=== PATIENT | male | born 1950 | race Caucasian/White ===

== ENCOUNTER 2017-04-03 09:56 | Emergency (ER) | payer MEDICARE ==
[~2017-04-03] VITALS: Ht 193 cm; Wt 90.5 kg
[~2017-04-03 09:56] MED LIST: BACT2OIN TOP; SULF-154 PO; Z.0.NO CURRENT MEDS
[2017-04-03 10:55] VITALS: BP 144/79; PULSE 90; RESP 20; TEMP 98.9; O2SAT 96
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
[2017-04-03] MEDS ORDERED: KETOROLAC TROMETHAMINE 60 MG/2 ML (IM) VIAL IM ONE (11:15)
--- NOTE | 2017-04-03 12:15 | RADRPT ---
EXAM DATE/TIME: 04/03/2017 11:54 [facility] COMPARISON: No previous studies available for comparison. INDICATIONS : Left knee pain, post fall. MEDICAL HISTORY : Prior fracture to left leg SURGICAL HISTORY : ENCOUNTER: Initial ACUITY: 1 day PAIN SCORE: 7/10 LOCATION: Left knee FINDINGS: Severe deformity is identified of the left knee. Findings predominantly involve the proximal tibia. T here is coarse trabeculation, cortical deformity and radiolucent cystic regions. There is no evidence of acute fracture. No significant joint effusion is noted. Significant narrowing is identified of the medial and lateral joint compartments. CONCLUSION: Benign-appearing deformity of the left knee predominantly involving the proximal tibia which may be p osttraumatic. No evidence of acute fracture or joint effusion. Moderate degenerative joint disease with joint space narrowing and remodeling of the articular surfac es. Pardeep Michaels MD on April 03, 2017 at 12:10 Board Certified Radiologist. This report was verified electronically.
[2017-04-03] MEDS ORDERED: IBUP800T23 PO (12:18)
[2017-04-03] MEDS ORDERED: UNIS50CA PO (13:19)
[2017-04-03] MEDS ORDERED: VITA-136 PO (13:19)
[2017-04-03] MEDS ORDERED: TRAZ100T6 PO (13:19)
[2017-04-03] MEDS ORDERED: BENZ0.5T PO (13:19)
[2017-04-03] MEDS ORDERED: ALBUAER3 INH (13:19)
[2017-04-03] MEDS ORDERED: ASPI81TA2 PO (13:19)
[2017-04-03] MEDS ORDERED: SYMB160A INH (13:19)
[2017-04-03] MEDS ORDERED: HALO10TA PO (13:19)
[2017-04-03] MEDS ORDERED: ZOCO20TA PO (13:19)
--- NOTE | 2017-04-03 15:28 | RADRPT ---
EXAM DATE/TIME: 04/03/2017 14:43 [facility] COMPARISON: KNEE LEFT COMPLETE (4VWS), April 03, 2017, 11:54. INDICATIONS : Trip and fall, left knee pain. RADIATION DOSE: 5.25 CTDIvol (mGy) MEDICAL HISTORY : None SURGICAL HISTORY : None. ENCOUNTER: Initial ACUITY: 1 day PAIN SCALE: 7/10 LOCATION: Left knee. TECHNIQUE: Volumetric scanning of the knee was performed. Using automated exposure control and adjustment of th e mA and/or kV according to patient size, radiation dose was kept as low as reasonably achievable to obtain optimal diagnostic quality images. DICOM format image data is available electronically for re view and comparison. FINDINGS: Small joint effusion is seen. There are mixed areas of lucency in the patient's distal femur and proximal tibia and fibula and there is evidence for old healed proximal tibial fracture with deformi ty of the bony structures. Acute fracture is not identified. CONCLUSION: No definite fracture is seen for techniqueOnel Trotter MD on April 03, 2017 at 15:25 Board Certified Radiologist. This report was verified electronically.
[2017-04-03 16:02] VITALS: BP 144/72
== END 2017-04-03 16:05 | disposition home or self-care (01) ==
LOC: NEPD 09:56
DX: M25.562 Pain in left knee (principal)
CPT/HCPCS: 73564; 73700; 96372; 99285; E0113; J1885

== ENCOUNTER 2018-06-27 20:59 | Inpatient (IN) ==
--- NOTE | 2018-06-27 21:29 | XR ---
EXAM DATE: 06/27/2018 9:14 PM EDT AGE/SEX: 67 years / Male INDICATIONS: Cough CLINICAL DATA: This is the patient's initial encounter. Patient reports that signs and symptoms have been present for 1 day and indicates a pain score of 0/10. MEDICAL/SURGICAL HISTORY: None. None. COMPARISON: No prior exams available for comparison. FINDINGS: A single AP view of the chest demonstrates the lungs to be symmetrically aerated without evidence of mass, infiltrate or effusion. The cardiomediastinal contours are unremarkable. Osseous structures a re intact. CONCLUSION: No acute findings. Mildly tortuous aorta. Electronically signed by: Noel Castellanos MD 06/27/2018 9:28 PM EDT
--- NOTE | 2018-06-27 21:31 | ED ---
HPI General Chief complaint: Altered Mental Status Stated complaint: Poss AMS Time Seen by Provider: 06/27/18 21:01 Source: patient Mode of arrival: EMS Limitations: no limitations History of Present Illness HPI narrative: The patient is a 67 year old male who presents to the [facility] emergency department with a history of altered mentation began an unknown period of time prior to arrival. The patient is a resident at [facility]. The patient has a reported history of paranoid schizophrenia. The patient is usually quiet and keeps to himself at the facility, however the staff noticed today that he was fidgety, giggling to himself, and down in the office more than usual. The patient denies having any acute complaints. The patient denies using any alcohol or drugs today. He reports that he does smoke 1-1/2 packs of cigarettes per day. He reports that he has been taking his psychiatric medications. He denies having any known recent fevers. The long-term staff did report to ambulance services that he had not been sleeping well for the last 3 days. The patient denies having any numbness or tingling to his extremities, or weakness to his extremities. He denies having any difficulty with word finding ability or facial droop. On review of systems otherwise, the patient denies having any cough, congestion, neck pain, chest pain, shortness of breath, abdominal pain, vomiting, diarrhea, urinary symptoms , or other neurologic symptoms. Related Data Home Medications Medication Instructions Recorded Confirmed albuterol sulfate [ProAir HFA] 1 - 2 puff INHALATION Q6H PRN 06/27/18 06/27/18 aspirin 81 mg PO DAILY 06/27/18 06/27/18 benztropine 2 mg PO HS 06/27/18 06/27/18 budesonide-formoterol [Symbicort] 2 puff INHALATION BID 06/27/18 06/27/18 diphenhydramine HCl 50 mg PO HS PRN 06/27/18 06/27/18 haloperidol 10 mg PO HS 06/27/18 06/27/18 omeprazole 20 mg PO DAILY 06/27/18 06/27/18 oxybutynin chloride 10 mg PO BID 06/27/18 06/27/18 simvastatin 20 mg PO DAILY 06/27/18 06/27/18 trazodone 200 mg PO HS 06/27/18 06/27/18 vitamin E 400 unit PO DAILY 06/27/18 06/27/18 Allergies Allergy/AdvReac Type Severity Reaction Status Date / Time morphine Allergy Severe Unverified 05/05/17 01:18 penicillin G Allergy Mild NAUSEA Unverified 05/05/17 01:18 MORPHINE & DERIV. Allergy Unknown Uncoded 05/29/03 12:16 NONE Allergy Unknown Uncoded 05/29/03 12:16 Review of Systems ROS: all other systems reviewed are negative PMFSH History History Provided By: Patient Family History Family History Other Stomach cancer Social History Social History Substance History: No History of Abuse Second Hand Smoke Exposure: Yes Smoking Status: Heavy tobacco smoker Tobacco Type: Cigarettes Packs Per Day: 1.5 Cigarettes Per Day: 30.0 How Often Do You Have a Drink Containing Alcohol: Never Recent Travel in [facility] within the Last 8 Weeks: No Recent Out of Country Travel within the Last 8 Weeks: No Immunization History Tetanus Immunization: >5 Years Exam Const General: cooperative, no acute distress and well developed Nutritional Appearance: well nourished Orientation: alert, awake and oriented x3 HENMT Head: normocephalic and atraumatic Nose: no nasal discharge and no epistaxis Mouth: moist mucous membranes Throat: posterior oropharynx normal and uvula midline Eyes Sclera: normal sclerae Pupils: PERRL EOM: EOM intact bilaterally Neck Neck: no meningeal signs, trachea midline and no JVD Resp Effort & Inspection: no use of accessory muscles Auscultation: clear to auscultation bilaterally Cardio Rate: regular rate Rhythm: regular rhythm Heart Sounds: no gallops, no murmurs and no rubs GI Inspection: non-distended Palpation: soft, no hepatosplenomegaly and nontender Auscultation: normal bowel sounds Back/Spine/Pelvis Back: no CVA tenderness Skin General: dry skin (warm) Neuro General: alert, awake and oriented x3 Cranial Nerves: CN's II-XI intact bilaterally Speech: abnormal speech (Slightly slurred, however the patient does not have any teeth which could be contributing to the slurring.) Motor: strength 5/5 throughout and no movement abnormalities noted Sensory Exam: no sensory deficits noted Extrem General: normal to inspection (2+ pulses in all 4 extremities), no calf tenderness, no clubbing, no cyanosis and no edema Psych Mood: congruent mood Affect: normal affect Judgment: fair Course Initial Documented Vital Signs Temperature 98.7 F 06/27/18 21:10 Pulse Rate 87 06/27/18 21:10 Respiratory Rate 16 06/27/18 21:10 Blood Pressure 158/83 H 06/27/18 21:10 Pulse Oximetry 97 06/27/18 21:10 Last Documented Vital Signs Temperature 98.7 F 06/27/18 21:10 Pulse Rate 54 L 06/28/18 06:05 Respiratory Rate 15 06/28/18 06:05 Blood Pressure 116/63 06/28/18 06:05 Pulse Oximetry 97 06/28/18 06:05 Medical Decision Making MDM Narrative Medical decision making narrative: During the course of the patient's emergency department visit, the patient's history, examination, and differential diagnosis were reviewed with the patient. The patient was placed on a equipment monitor phototypesetting with oximetry and frequent blood pressure monitoring. The patient had IV access obtained and blood work sent for analysis. Diagnostic evaluation was started regarding the patient's altered mentation The patient's diagnostic evaluation is remarkable for a normal CBC, PT PTT within normal limits, chemistries remarkable for a chloride of 108, glucose 123 , total bilirubin 1.1, AST is 74, alk phos 44, ammonia level within normal limits, troponin I less than 0.02, lipase within normal limits, TSH within normal limits. Urinalysis shows no evidence of infection, urine drug screen is negative, acetaminophen is less than 2, salicylate 4.7, alcohol level is less than 3. A chest x-ray showed no acute abnormality, CT scan of the brain showed a 5 mm lacunar infarct near the left anterior limb internal capsule which is a new finding from 2010. The patient was given an adult aspirin. The patient will be admitted to the hospital for altered mentation, evaluation for history of stroke which the patient denies any history of previously. The patient's case including history, pertinent physical examination findings, and laboratory studies were discussed with Dr. Garcia. It was agreed that the patient would be admitted to the hospitalist service. The patient's results were discussed with the patient, including the plan of care. I explained that further testing and/ or monitoring is indicated based on the patient's history, examination, and/ or laboratory findings. Therefore, I recommended admission for additional evaluation. The patient expressed understanding and was agreeable with this plan. The patient was admitted to the hospital in stable condition and sent to a bed under the care of [facility] service. Medical Screen Exam Complete: Yes Emergency Medical Condition: Yes Differential Diagnosis Differential Diagnosis: Hepatic encephalopathy, versus exacerbation of psychiatric disorder, versus encephalopathy related to underlying infection such as UTI Medical Records Medical records reviewed: Yes I reviewed the patient's medical records. Lab Data Result diagrams: 06/27/18 21:35 06/27/18 21:35 Lab Results 06/27/18 06/27/18 06/27/18 Range/Units 21:35 21:35 21:35 WBC 7.5 (4.0-11.0) th/mm3 RBC 4.51 (4.50-5.90) mil/mm3 Hgb 14.1 (13.0-17.0) gm/dL Hct 41.4 (39.0-51.0) % MCV 91.7 (80.0-100.0) fL MCH 31.3 (27.0-34.0) pg MCHC 34.1 (32.0-36.0) % RDW 14.5 (11.6-17.2) % Plt Count 161 (150-450) th/mm3 MPV 8.1 (7.0-11.0) fL Neut % (Auto) 70.0 (16.0-70.0) % Lymph % (Auto) 14.6 (9.0-44.0) % [place] % (Auto) 12.1 H (0.0-8.0) % Eos % (Auto) 2.6 (0.0-4.0) % Baso % (Auto) 0.7 (0.0-2.0) % Neut # (Auto) 5.3 (1.8-7.7) th/mm3 Lymph # (Auto) 1.1 (1.0-4.8) th/mm3 [place] # (Auto) 0.9 (0.0-0.9) th/mm3 Eos # (Auto) 0.2 (0.0-0.4) th/mm3 Baso # (Auto) 0.1 (0.0-0.2) th/mm3 WBC Differential . Differential Comment Auto diff final PT 11.4 (9.8-11.6) sec INR 1.1 Ratio APTT 27.1 (24.3-30.1) sec Sodium 141 (136-145) meq/L Potassium 3.7 (3.5-5.1) meq/L Chloride 108 H (98-107) meq/L Carbon Dioxide 22.8 (21.0-32.0) meq/L Anion Gap 10 (5-15) meq/L BUN 12 (7-18) mg/dL Creatinine 0.87 (0.60-1.30) mg/dL Estimated GFR 88 L (>89) mL/min Random Glucose 123 H (74-106) mg/dL Calcium 8.8 (8.5-10.1) mg/dL Total Bilirubin 1.1 H (0.2-1.0) mg/dL AST 74 H (15-37) U/L ALT 33 (12-78) U/L Alkaline Phosphatase 44 L (45-117) U/L Ammonia (11-32) mcmol/L Troponin I Less than 0.02 L (0.02-0.05) ng/mL Total Protein 7.7 (6.4-8.2) g/dL Albumin 3.9 (3.4-5.0) g/dL Lipase 60 L (73-393) U/L TSH 0.974 (0.358-3.740) uIU/mL Urine Color (Yellw/Straw) Urine Clarity (Clear) Urine pH (5.0-8.5) Ur Specific [place] (1.002-1.035) Urine Protein (Neg-Trace) mg/dL Urine Glucose (UA) (Negative) mg/dL Urine Ketones (Negative) mg/dL Urine Occult Blood (Negative) Urine Nitrate (Negative) Urine Bilirubin (Negative) Urine Urobilinogen (Less than 2) mg/dL Ur Leukocyte Esterase (Negative) Urine RBC (0-3) /hpf Urine WBC (0-5) /hpf Hyaline Casts (0-3) /lpf Urine Mucus (Occasional) /lpf Micro UA Comment Ur Microscopic Review Urine Culture Comments Salicylates (2.8-20.0) mg/dL Urine Opiates Screen (Neg) Acetaminophen Less than 2.0 L (10.0-30.0) mcg/mL Ur Barbiturates Screen (Neg) Ur Amphetamines Screen (Neg) U Benzodiazepines Scrn (Neg) Urine Cocaine Screen (Neg) U Cannabinoids Screen (Neg) Serum Alcohol Less than 3 (0-5) mg/dL 06/27/18 06/27/18 06/27/18 Range/Units 21:35 21:35 23:40 WBC (4.0-11.0) th/mm3 RBC (4.50-5.90) mil/mm3 Hgb (13.0-17.0) gm/dL Hct (39.0-51.0) % MCV (80.0-100.0) fL MCH (27.0-34.0) pg MCHC (32.0-36.0) % RDW (11.6-17.2) % Plt Count (150-450) th/mm3 MPV (7.0-11.0) fL Neut % (Auto) (16.0-70.0) % Lymph % (Auto) (9.0-44.0) % [place] % (Auto) (0.0-8.0) % Eos % (Auto) (0.0-4.0) % Baso % (Auto) (0.0-2.0) % Neut # (Auto) (1.8-7.7) th/mm3 Lymph # (Auto) (1.0-4.8) th/mm3 [place] # (Auto) (0.0-0.9) th/mm3 Eos # (Auto) (0.0-0.4) th/mm3 Baso # (Auto) (0.0-0.2) th/mm3 WBC Differential Differential Comment PT (9.8-11.6) sec INR Ratio APTT (24.3-30.1) sec Sodium (136-145) meq/L Potassium (3.5-5.1) meq/L Chloride (98-107) meq/L Carbon Dioxide (21.0-32.0) meq/L Anion Gap (5-15) meq/L BUN (7-18) mg/dL Creatinine (0.60-1.30) mg/dL Estimated GFR (>89) mL/min Random Glucose (74-106) mg/dL Calcium (8.5-10.1) mg/dL Total Bilirubin (0.2-1.0) mg/dL AST (15-37) U/L ALT (12-78) U/L Alkaline Phosphatase (45-117) U/L Ammonia 28 (11-32) mcmol/L Troponin I (0.02-0.05) ng/mL Total Protein (6.4-8.2) g/dL Albumin (3.4-5.0) g/dL Lipase (73-393) U/L TSH (0.358-3.740) uIU/mL Urine Color (Yellw/Straw) Urine Clarity (Clear) Urine pH (5.0-8.5) Ur Specific [place] (1.002-1.035) Urine Protein (Neg-Trace) mg/dL Urine Glucose (UA) (Negative) mg/dL Urine Ketones (Negative) mg/dL Urine Occult Blood (Negative) Urine Nitrate (Negative) Urine Bilirubin (Negative) Urine Urobilinogen (Less than 2) mg/dL Ur Leukocyte Esterase (Negative) Urine RBC (0-3) /hpf Urine WBC (0-5) /hpf Hyaline Casts (0-3) /lpf Urine Mucus (Occasional) /lpf Micro UA Comment Ur Microscopic Review Urine Culture Comments Salicylates 4.7 (2.8-20.0) mg/dL Urine Opiates Screen Neg (Neg) Acetaminophen (10.0-30.0) mcg/mL Ur Barbiturates Screen Neg (Neg) Ur Amphetamines Screen Neg (Neg) U Benzodiazepines Scrn Neg (Neg) Urine Cocaine Screen Neg (Neg) U Cannabinoids Screen Neg (Neg) Serum Alcohol (0-5) mg/dL 06/27/18 Range/Units 23:40 WBC (4.0-11.0) th/mm3 RBC (4.50-5.90) mil/mm3 Hgb (13.0-17.0) gm/dL Hct (39.0-51.0) % MCV (80.0-100.0) fL MCH (27.0-34.0) pg MCHC (32.0-36.0) % RDW (11.6-17.2) % Plt Count (150-450) th/mm3 MPV (7.0-11.0) fL Neut % (Auto) (16.0-70.0) % Lymph % (Auto) (9.0-44.0) % [place] % (Auto) (0.0-8.0) % Eos % (Auto) (0.0-4.0) % Baso % (Auto) (0.0-2.0) % Neut # (Auto) (1.8-7.7) th/mm3 Lymph # (Auto) (1.0-4.8) th/mm3 [place] # (Auto) (0.0-0.9) th/mm3 Eos # (Auto) (0.0-0.4) th/mm3 Baso # (Auto) (0.0-0.2) th/mm3 WBC Differential Differential Comment PT (9.8-11.6) sec INR Ratio APTT (24.3-30.1) sec Sodium (136-145) meq/L Potassium (3.5-5.1) meq/L Chloride (98-107) meq/L Carbon Dioxide (21.0-32.0) meq/L Anion Gap (5-15) meq/L BUN (7-18) mg/dL Creatinine (0.60-1.30) mg/dL Estimated GFR (>89) mL/min Random Glucose (74-106) mg/dL Calcium (8.5-10.1) mg/dL Total Bilirubin (0.2-1.0) mg/dL AST (15-37) U/L ALT (12-78) U/L Alkaline Phosphatase (45-117) U/L Ammonia (11-32) mcmol/L Troponin I (0.02-0.05) ng/mL Total Protein (6.4-8.2) g/dL Albumin (3.4-5.0) g/dL Lipase (73-393) U/L TSH (0.358-3.740) uIU/mL Urine Color Yellow (Yellw/Straw) Urine Clarity Clear (Clear) Urine pH 6.0 (5.0-8.5) Ur Specific [place] 1.014 (1.002-1.035) Urine Protein Negative (Neg-Trace) mg/dL Urine Glucose (UA) Negative (Negative) mg/dL Urine Ketones Trace H (Negative) mg/dL Urine Occult Blood Negative (Negative) Urine Nitrate Negative (Negative) Urine Bilirubin Negative (Negative) Urine Urobilinogen 4 or greater (Less than 2) mg/dL Ur Leukocyte Esterase Negative (Negative) Urine RBC 1 (0-3) /hpf Urine WBC 1 (0-5) /hpf Hyaline Casts 1 (0-3) /lpf Urine Mucus Few H (Occasional) /lpf Micro UA Comment Culture not ind Ur Microscopic Review Not Reportable Urine Culture Comments Culture not ind Salicylates (2.8-20.0) mg/dL Urine Opiates Screen (Neg) Acetaminophen (10.0-30.0) mcg/mL Ur Barbiturates Screen (Neg) Ur Amphetamines Screen (Neg) U Benzodiazepines Scrn (Neg) Urine Cocaine Screen (Neg) U Cannabinoids Screen (Neg) Serum Alcohol (0-5) mg/dL Imaging Data Radiologist's impression: Chest X-Ray 06/27/18 21:14 CONCLUSION: No acute findings. Mildly tortuous aorta. Head CT 06/27/18 21:14 CONCLUSION: 1. 5 mm lacunar infarct near the left anterior limb internal capsule, new finding from 2010. 2. Otherwise negative noncontrast CT brain. . Carotid Doppler Study 06/28/18 00:00 CONCLUSION: Mild plaque with no evidence of stenosis. Head MRI 06/28/18 00:41 CONCLUSION: 1. No acute hemorrhage, mass or acute infarction. 2. Small lacunar infarct in the left basal ganglia with no restricted diffusion. Head MRA 06/28/18 00:41 CONCLUSION: 1. Unremarkable MRA of the brain. Discharge Plan Discharge Disposition Patient Disposition: 30 Still Patient Discharge Details Diagnosis: Altered mental status Physicians Team ED Provider: Lana Arriaga Primary Care Provider: UNKNOWN, Attending Provider: Alan Camacho Other Providers: Michael Tobin ; Marichuy Lopez Discharge Interventions Interventions: ED Discharge Assessment Last Done: 06/28/18 11:10 Status ED Status: Left Department Discharge Information Discharge Date/Time: 06/28/18 11:10
[2018-06-27 21:47] LABS: Baso # (Auto) 0.1 th/mm3 (0.0-0.2); Baso % (Auto) 0.7 % (0.0-2.0); Eos # (Auto) 0.2 th/mm3 (0.0-0.4); Eos % (Auto) 2.6 % (0.0-4.0); Hematocrit 41.4 % (39.0-51.0); Hemoglobin 14.1 gm/dL (13.0-17.0); Lymph # (Auto) 1.1 th/mm3 (1.0-4.8); Lymph % (Auto) 14.6 % (9.0-44.0); Mean Corpuscular HGB Conc 34.1 % (32.0-36.0); Mean Corpuscular Hemoglobin 31.3 pg (27.0-34.0); Mean Corpuscular Volume 91.7 fL (80.0-100.0); Mean Platelet Volume 8.1 fL (7.0-11.0); Mono # (Auto) 0.9 th/mm3 (0.0-0.9); Mono % (Auto) 12.1 % (0.0-8.0); Neut # (Auto) 5.3 th/mm3 (1.8-7.7); Platelet Count 161 th/mm3 (150-450); Red Blood Count 4.51 mil/mm3 (4.50-5.90); Red Cell Distribution Width 14.5 % (11.6-17.2); White Blood Count 7.5 th/mm3 (4.0-11.0)
[2018-06-27 22:01] LABS: Activated Partial Thrombo Time 27.1 sec (24.3-30.1); INR 1.1 Ratio; Prothrombin Time 11.4 sec (9.8-11.6)
[2018-06-27 22:06] LABS: Albumin 3.9 g/dL (3.4-5.0); Anion Gap 10 meq/L (5-15); Aspartate Aminotransferase 74 U/L (15-37); Blood Urea Nitrogen 12 mg/dL (7-18); Calcium 8.8 mg/dL (8.5-10.1); Carbon Dioxide 22.8 meq/L (21.0-32.0); Chloride 108 meq/L (98-107); Glomerular Filtration Rate 88 mL/min (>89); Glucose,Random 123 mg/dL (74-106); Lipase 60 U/L (73-393); Potassium 3.7 meq/L (3.5-5.1); Sodium 141 meq/L (136-145)
[2018-06-27 22:07] LABS: Alanine Aminotransferase 33 U/L (12-78)
[2018-06-27 22:17] LABS: Alkaline Phosphatase 44 U/L (45-117); Thyroid Stimulating Hormone 0.974 uIU/mL (0.358-3.740); Total Protein 7.7 g/dL (6.4-8.2)
--- NOTE | 2018-06-27 22:49 | CT ---
EXAM DATE: 06/27/2018 9:33 PM EDT AGE/SEX: 67 years / Male INDICATIONS: Altered mental status, difficulty sleeping. CLINICAL DATA: This is the patient's initial encounter. Patient reports that signs and symptoms have been present for 3 days and indicates a pain score of 0/10. MEDICAL/SURGICAL HISTORY: . Paranoid schizophrenia. Tonsillectomy. RADIATION DOSE: 38.82 CTDI (mGy) ; Patient motion COMPARISON: [facility] [place], CT BRAIN W/O CONTRAST, 09/03/2011. . TECHNIQUE: CT of the head without contrast. Using automated exposure control and adjustment of the mA and/or kV according to patient size, radiation dose was kept as low as reasonably achievable to ob tain optimal diagnostic quality images. DICOM format image data is available electronically for revi ew and comparison. FINDINGS: Cerebrum: The ventricles are normal for age. No evidence of midline shift, mass lesion, hemorrhage or acute infarction. There is a 5 mm hypodensity in the left striatum adjacent to the anterior limb o f the internal capsule which is a new finding compared to prior CT in 2010, suggesting lacunar infarc t. No extraaxial fluid collections are seen. Posterior Fossa: The cerebellum and brainstem are intact. The 4th ventricle is midline. The cerebe llopontine angle is unremarkable. Extracranial: The visualized portion of the orbits is intact. Skull: The calvaria is intact. No evidence of skull fracture. CONCLUSION: 1. 5 mm lacunar infarct near the left anterior limb internal capsule, new finding from 2010. 2. Otherwise negative noncontrast CT brain. . Electronically signed by: Agapito Shannon MD 06/27/2018 10:48 PM EDT
[2018-06-27] MEDS ORDERED: Aspirin 325 MG Tablet PO ONE (23:30)
[2018-06-28 00:09] LABS: Bilirubin,Urine Negative (Negative); Clarity,Urine Clear (Clear); Color,Urine Yellow (Yellw/Straw); Glucose,Urine (UA) Negative (Negative); Hyaline Casts,Urine 1 /lpf (0-3); Leukocyte Esterase,Urine Negative (Negative); Mucus,Urine Few /lpf (Occasional); Nitrite,Urine Negative (Negative); Specific Gravity,Urine 1.014 (1.002-1.035); Urobilinogen,Urine 4 or Greater mg/dL (Less than 2)
[2018-06-28 00:10] LABS: Amphetamine Screen,Urine Neg (Neg); Barbiturate Screen,Urine Neg (Neg); Cannabinoid Screen,Urine Neg (Neg); Cocaine Screen,Urine Neg (Neg)
[2018-06-28 00:15] LABS: Opiate Screen,Urine Neg (Neg)
[2018-06-28] MEDS ORDERED: Dextrose 50% in Water 50 ML Vial IV.PUSH PRN (00:53)
--- NOTE | 2018-06-28 00:57 | P.HP ---
History of Present Illness Service: [facility] Primary Care Physician: UNKNOWN History of Present Illness: 67-year-old male with a past medical history significant for paranoid schizophrenia, COPD, GERD, and hyperlipidemia presents to the emergency department from his custodial for the evaluation of altered mental status. Per emergency department documentation the patient is usually quiet and keeps to himself at the facility however today the staff noticed that he was fidgety, giggling to himself and down in the office more than usual. The patient cannot tell me why he is here and does not have any complaints. He denies using any alcohol or drugs. He states he has been compliant with his medications. No facial droop or slurred speech. No lateralizing signs/symptoms. No chest pain or shortness of breath. No fevers or chills. No abdominal pain. No nausea/ vomiting/diarrhea. Head CT significant for lacunar infarct of unknown age. Review of Systems All other systems reviewed negative except as stated in HPI PMF[facility] - History History Provided By: Patient - Medical History Medical History: Medical History (Last Updated 06/28/18 @ 00:48 by Autumn Dexter MD) COPD (chronic obstructive pulmonary disease) GERD (gastroesophageal reflux disease) HLD (hyperlipidemia) Paranoid schizophrenia - Surgical History Surgical History: Surgical History (Last Reviewed 06/28/18 @ 00:48 by Autumn Dexter MD) History of tonsillectomy - Family History Family History: Family History (Last Updated 06/28/18 @ 00:48 by Autumn Dexter MD) Other Stomach cancer - Tobacco History Tobacco Use In Past 30 Days: Yes Smoking Status: Heavy tobacco smoker Tobacco Type: Cigarettes Packs Per Day: 1.5 Cigarettes Per Day: 30.0 - Alcohol History How Often Do You Have a Drink Containing Alcohol: Never - Substance Use History Substance History: No History of Abuse - Travel History Recent Travel in the [place] Within the Last 8 Weeks: No Recent Travel Out of the Country Within the Last 8 Weeks: No - Immunization History Tetanus Immunization: >5 Years Medications and Allergies Active Medications: Active Medications Sodium Chloride (Ns Flush) 2 ml IV.FLUSH PRN PRN PRN Reason: FLUSH AFTER USING IV ACCESS Allergies Allergy/AdvReac Type Severity Reaction Status Date / Time morphine Allergy Severe Unverified 05/05/17 01:18 penicillin G Allergy Mild NAUSEA Unverified 05/05/17 01:18 MORPHINE & DERIV. Allergy Unknown Uncoded 05/29/03 12:16 NONE Allergy Unknown Uncoded 05/29/03 12:16 Home Medications Medication Instructions Recorded Confirmed Type albuterol sulfate [ProAir HFA] 1 - 2 puff INHALATION Q6H PRN 06/27/18 06/27/18 History aspirin 81 mg PO DAILY 06/27/18 06/27/18 History benztropine 2 mg PO HS 06/27/18 06/27/18 History budesonide-formoterol [Symbicort] 2 puff INHALATION BID 06/27/18 06/27/18 History diphenhydramine HCl 50 mg PO HS PRN 06/27/18 06/27/18 History haloperidol 10 mg PO HS 06/27/18 06/27/18 History omeprazole 20 mg PO DAILY 06/27/18 06/27/18 History oxybutynin chloride 10 mg PO BID 06/27/18 06/27/18 History simvastatin 20 mg PO DAILY 06/27/18 06/27/18 History trazodone 200 mg PO HS 06/27/18 06/27/18 History vitamin E 400 unit PO DAILY 06/27/18 06/27/18 History Exam Vital signs: Vital Signs 06/27/18 21:10 Temperature 98.7 F Pulse Rate 87 Respiratory Rate 16 Blood Pressure 158/83 H Pulse Oximetry 97 Intake & Output 06/27/18 06/27/18 06/28/18 06:59 18:59 06:59 Weight 85.729 kg Narrative: Gen.: No acute distress Head: Normocephalic. Atraumatic. EENT: Pupils equal round and reactive to light. Nose without drainage. Airway intact. Throat without injection. Cardiovascular: Regular rate and rhythm. No murmurs, rubs or gallops. Respiratory: Lungs clear to auscultation bilaterally. No wheezes or rhonchi. Abdomen: Soft, nontender, nondistended. No peritoneal signs. Musculoskeletal: No gross deformities. No edema. Skin: No obvious rashes or erythema. Neuro: Sensory and motor grossly intact. Cranial nerves II through XII grossly intact. Results - Labs CBC & Chem 7: 06/27/18 21:35 06/27/18 21:35 Labs: Laboratory Results - last 24 hr 06/27/18 06/27/18 06/27/18 21:35 21:35 21:35 WBC 7.5 RBC 4.51 Hgb 14.1 Hct 41.4 MCV 91.7 MCH 31.3 MCHC 34.1 RDW 14.5 Plt Count 161 MPV 8.1 Neut % (Auto) 70.0 Lymph % (Auto) 14.6 [place] % (Auto) 12.1 H Eos % (Auto) 2.6 Baso % (Auto) 0.7 Neut # (Auto) 5.3 Lymph # (Auto) 1.1 [place] # (Auto) 0.9 Eos # (Auto) 0.2 Baso # (Auto) 0.1 WBC Differential . Differential Comment Auto diff final PT 11.4 INR 1.1 APTT 27.1 Sodium 141 Potassium 3.7 Chloride 108 H Carbon Dioxide 22.8 Anion Gap 10 BUN 12 Creatinine 0.87 Estimated GFR 88 L Random Glucose 123 H Calcium 8.8 Total Bilirubin 1.1 H AST 74 H ALT 33 Alkaline Phosphatase 44 L Ammonia Troponin I Less than 0.02 L Total Protein 7.7 Albumin 3.9 Lipase 60 L TSH 0.974 Urine Color Urine Clarity Urine pH Ur Specific [place] Urine Protein Urine Glucose (UA) Urine Ketones Urine Occult Blood Urine Nitrate Urine Bilirubin Urine Urobilinogen Ur Leukocyte Esterase Urine RBC Urine WBC Hyaline Casts Urine Mucus Micro UA Comment Ur Microscopic Review Urine Culture Comments Salicylates Urine Opiates Screen Acetaminophen Less than 2.0 L Ur Barbiturates Screen Ur Amphetamines Screen U Benzodiazepines Scrn Urine Cocaine Screen U Cannabinoids Screen Serum Alcohol Less than 3 06/27/18 06/27/18 06/27/18 21:35 21:35 23:40 WBC RBC Hgb Hct MCV MCH MCHC RDW Plt Count MPV Neut % (Auto) Lymph % (Auto) [place] % (Auto) Eos % (Auto) Baso % (Auto) Neut # (Auto) Lymph # (Auto) [place] # (Auto) Eos # (Auto) Baso # (Auto) WBC Differential Differential Comment PT INR APTT Sodium Potassium Chloride Carbon Dioxide Anion Gap BUN Creatinine Estimated GFR Random Glucose Calcium Total Bilirubin AST ALT Alkaline Phosphatase Ammonia 28 Troponin I Total Protein Albumin Lipase TSH Urine Color Urine Clarity Urine pH Ur Specific [place] Urine Protein Urine Glucose (UA) Urine Ketones Urine Occult Blood Urine Nitrate Urine Bilirubin Urine Urobilinogen Ur Leukocyte Esterase Urine RBC Urine WBC Hyaline Casts Urine Mucus Micro UA Comment Ur Microscopic Review Urine Culture Comments Salicylates 4.7 Urine Opiates Screen Neg Acetaminophen Ur Barbiturates Screen Neg Ur Amphetamines Screen Neg U Benzodiazepines Scrn Neg Urine Cocaine Screen Neg U Cannabinoids Screen Neg Serum Alcohol 06/27/18 23:40 WBC RBC Hgb Hct MCV MCH MCHC RDW Plt Count MPV Neut % (Auto) Lymph % (Auto) [place] % (Auto) Eos % (Auto) Baso % (Auto) Neut # (Auto) Lymph # (Auto) [place] # (Auto) Eos # (Auto) Baso # (Auto) WBC Differential Differential Comment PT INR APTT Sodium Potassium Chloride Carbon Dioxide Anion Gap BUN Creatinine Estimated GFR Random Glucose Calcium Total Bilirubin AST ALT Alkaline Phosphatase Ammonia Troponin I Total Protein Albumin Lipase TSH Urine Color Yellow Urine Clarity Clear Urine pH 6.0 Ur Specific [place] 1.014 Urine Protein Negative Urine Glucose (UA) Negative Urine Ketones Trace H Urine Occult Blood Negative Urine Nitrate Negative Urine Bilirubin Negative Urine Urobilinogen 4 or greater Ur Leukocyte Esterase Negative Urine RBC 1 Urine WBC 1 Hyaline Casts 1 Urine Mucus Few H Micro UA Comment Culture not ind Ur Microscopic Review Not Reportable Urine Culture Comments Culture not ind Salicylates Urine Opiates Screen Acetaminophen Ur Barbiturates Screen Ur Amphetamines Screen U Benzodiazepines Scrn Urine Cocaine Screen U Cannabinoids Screen Serum Alcohol - Imaging Impressions Chest X-Ray 06/27/18 21:14 CONCLUSION: No acute findings. Mildly tortuous aorta. Head CT 06/27/18 21:14 CONCLUSION: 1. 5 mm lacunar infarct near the left anterior limb internal capsule, new finding from 2010. 2. Otherwise negative noncontrast CT brain. . Caprini VTE Risk Assessment Caprini VTE Risk Assessment: Moderate/High Risk (score >= 2) Caprini Risk Assessment Model: Point Value = 1 Point Value = 2 Point Value = 3 Point Value = 5 Age 41-60 Minor surgery BMI > 25 kg/m2 Swollen legs Varicose veins or History of unexplained or recurrent spontaneous Oral contraceptives or hormone replacement Sepsis (< 1 month) Serious lung disease, including pneumonia (< 1 month) Abnormal pulmonary function Acute myocardial infarction Congestive heart failure (< 1 month) History of inflammatory bowel disease Medical patient at bed rest Age 61-74 Arthroscopic surgery Major open surgery (> 45 min) Laparoscopic surgery (> 45 min) Malignancy Confined to bed (> 72 hours) Immobilizing plaster cast Central venous access Age >= 75 History of VTE Family history of VTE Factor V Leiden Prothrombin [id number] Lupus anticoagulant Anticardiolipin antibodies Elevated serum homocysteine Heparin-induced thrombocytopenia Other congenital or acquired thrombophilia Stroke (< 1 month) Elective arthroplasty Hip, pelvis, or leg fracture Acute spinal cord injury (< 1 month) Prophylaxis Regimen: Total Risk Factor Score Risk Level Prophylaxis Regimen 0-1 Low Early ambulation 2 Moderate Order ONE of the following: *Sequential Compression Device (SCD) *Heparin 5000 units SQ BID 3-4 Higher Order ONE of the following medications: *Heparin 5000 units SQ TID *Enoxaparin/Lovenox 40 mg SQ daily (WT < 150 kg, CrCl > 30 mL/min) *Enoxaparin/Lovenox 30 mg SQ daily (WT < 150 kg, CrCl > 10-29 mL/min) *Enoxaparin/Lovenox 30 mg SQ BID (WT < 150 kg, CrCl > 30 mL/min) AND/OR *Sequential Compression Device (SCD) 5 or more Highest Order ONE of the following medications: *Heparin 5000 units SQ TID (Preferred with Epidurals) *Enoxaparin/Lovenox 40 mg SQ daily (WT < 150 kg, CrCl > 30 mL/min) *Enoxaparin/Lovenox 30 mg SQ daily (WT < 150 kg, CrCl > 10-29 mL/min) *Enoxaparin/Lovenox 30 mg SQ BID (WT < 150 kg, CrCl > 30 mL/min) AND *Sequential Compression Device (SCD) Assessment and Plan - Plan Assessment/plan: 1. Altered mental status Unclear etiology Urine drug screen negative Patient reports compliance with his medications Head CT shows lacunar infarct, age undetermined 2. CVA Head CT results as above MRI/MRA pending, carotid ultrasound/echo pending Neurology consulted, appreciate recommendations 3. Paranoid schizophrenia Continue home medications 4. COPD/GERD/hyperlipidemia Continue home medications FEN N.p.o. Electrolytes: Monitor and replete as needed NS at 70 cc/hour Heparin
[2018-06-28] MEDS: Benztropine 2 MG Tablet PO SCH ×2 (01:03→20:55)
[2018-06-28] MEDS: traZODone 100 MG Tablet PO SCH ×2 (01:04→20:56)
[2018-06-28] MEDS: Heparin - SQ 10,000 UNITS/ML Vial SQ SCH ×2 (01:35→14:11)
[2018-06-28] MEDS: Sod Chloride 0.9% Inj 1,000 ML IV.CONT SCH ×2 (01:35→15:59)
[2018-06-28] MEDS: Insulin NovoLOG Aspart Correctional Sugar Inj SQ SCH ×5 (02:45→21:06)
--- NOTE | 2018-06-28 09:28 | P.CONNEU ---
History of Present Illness Service: Neurology Primary Care Provider: UNKNOWN Chief Complaint: Stroke History of Present Illness: 67-year-old male admitted for question mental status changes. History of schizophrenia unable to care for himself and on disability [facility] a [facility]. Apparently may not be taking psychiatric medications. Had a CT brain scan which demonstrated tiny lacunar infarct. Patient denies any visual loss language disturbance focal weakness denies any history of stroke or TIA. Review of Systems All other systems reviewed negative except as stated in HPI [facility] - History History Provided By: Patient - Medical History Medical History: Medical History (Last Reviewed 06/28/18 @ 09:08 by Kobi Carlson) COPD (chronic obstructive pulmonary disease) GERD (gastroesophageal reflux disease) HLD (hyperlipidemia) Paranoid schizophrenia - Surgical History Surgical History: Surgical History (Last Reviewed 06/28/18 @ 00:48 by Autumn Dexter MD) History of tonsillectomy - Family History Family History: Family History (Last Updated 06/28/18 @ 00:48 by Autumn Dexter MD) Other Stomach cancer - Tobacco History Tobacco Use In Past 30 Days: Yes Smoking Status: Heavy tobacco smoker Tobacco Type: Cigarettes Packs Per Day: 1.5 Cigarettes Per Day: 30.0 - Alcohol History How Often Do You Have a Drink Containing Alcohol: Never - Substance Use History Substance History: No History of Abuse - Travel History Recent Travel in the [place] Within the Last 8 Weeks: No Recent Travel Out of the Country Within the Last 8 Weeks: No - Immunization History Tetanus Immunization: >5 Years Medications and Allergies Active Medications: Active Medications Aspirin (Ecotrin) 81 mg PO DAILY [facility] Benztropine Mesylate (Cogentin) 2 mg PO HS [facility] Last Admin: 06/28/18 01:03 Dose: Not Given Budesonide/Formoterol Fumarate (Symbicort 160/4.5 Mcg Inh) 2 puff INH BID [facility] Dextrose (D50w Vial) 50 ml IV.PUSH UNSCH PRN PRN Reason: PER HYPOGLYCEMIA PROTOCOL Diphenhydramine HCl (Benadryl) 50 mg PO HS PRN PRN Reason: Sleep Glucagon (Glucagon Inj) 1 mg OTHER PRN PRN PRN Reason: for Hypoglycemia Protocol Haloperidol (Haldol) 10 mg PO HS [facility] Last Admin: 06/28/18 01:04 Dose: Not Given Heparin Sodium (Porcine) (Heparin Inj) 5,000 units SQ Q12H [facility] Last Admin: 06/28/18 01:35 Dose: 5,000 units Sodium Chloride (Ns Inj) 1,000 mls @ 70 mls/hr IV.CONT .[id number] [facility] Last Admin: 06/28/18 01:35 Dose: 70 mls/hr Insulin Aspart (Novolog Insulin Correctional Sugar Inj) 0 unit SQ ACHS AND 3AM [facility]; Protocol Last Admin: 06/28/18 08:43 Dose: Not Given Pantoprazole Sodium (Protonix) 20 mg PO DAILY [facility] Pravastatin Sodium (Pravachol) 40 mg PO DAILY [facility] Sodium Chloride (Ns Flush) 2 ml IV.FLUSH BID [facility] Sodium Chloride (Ns Flush) 2 ml IV.FLUSH PRN PRN PRN Reason: FLUSH AFTER USING IV ACCESS Tolterodine Tartrate (Detrol La) 4 mg PO DAILY [facility] Trazodone HCl (Desyrel) 200 mg PO HS [facility] Last Admin: 06/28/18 01:04 Dose: Not Given Allergies Allergy/AdvReac Type Severity Reaction Status Date / Time morphine Allergy Severe Unverified 05/05/17 01:18 penicillin G Allergy Mild NAUSEA Unverified 05/05/17 01:18 MORPHINE & DERIV. Allergy Unknown Uncoded 05/29/03 12:16 NONE Allergy Unknown Uncoded 05/29/03 12:16 Home Medications Medication Instructions Recorded Confirmed Type albuterol sulfate [ProAir HFA] 1 - 2 puff INHALATION Q6H PRN 06/27/18 06/27/18 History aspirin 81 mg PO DAILY 06/27/18 06/27/18 History benztropine 2 mg PO HS 06/27/18 06/27/18 History budesonide-formoterol [Symbicort] 2 puff INHALATION BID 06/27/18 06/27/18 History diphenhydramine HCl 50 mg PO HS PRN 06/27/18 06/27/18 History haloperidol 10 mg PO HS 06/27/18 06/27/18 History omeprazole 20 mg PO DAILY 06/27/18 06/27/18 History oxybutynin chloride 10 mg PO BID 06/27/18 06/27/18 History simvastatin 20 mg PO DAILY 06/27/18 06/27/18 History trazodone 200 mg PO HS 06/27/18 06/27/18 History vitamin E 400 unit PO DAILY 06/27/18 06/27/18 History Exam Vital signs: Vital Signs 06/27/18 21:10 06/28/18 06:05 Temperature 98.7 F Pulse Rate 87 54 L Respiratory Rate 16 15 Blood Pressure 158/83 H 116/63 Pulse Oximetry 97 97 Intake & Output 06/27/18 06/28/18 06/28/18 18:59 06:59 18:59 Weight 85.729 kg Narrative: GENERAL: in NAD, SKIN: Warm and dry. HEAD: Atraumatic. Normocephalic. EYES: Pupils equal and round. No scleral icterus. ENT: No nasal bleeding or discharge. Mucous membranes pink and moist. NECK: Trachea midline. No JVD. CARDIOVASCULAR: Regular rate and rhythm. RESPIRATORY: No accessory muscle use. GASTROINTESTINAL: Abdomen soft, non-tender, nondistended. MUSCULOSKELETAL: Extremities without clubbing, cyanosis, or edema. No obvious deformities. NEUROLOGICAL: Awake and alert. Oriented 2-3, president trump, no aphasia, slightly dysarthric speech states he does not have his dentures in,, No facial asymmetry, OU 3-2mm, eomi, VFF, No drift, Motor grossly within normal limits. Five out of 5 muscle strength in the arms and legs. Tone normal in all 4 limbs, Sensory normal in all 4 extremities to pin, msr 1-2+ sym, no clonus, planterflexor, PSYCHIATRIC: Good eye contact, monotone speech, appears mildly paranoid - Constitutional no acute distress - Routine HEENT Exam Head: Present: normocephalic Results - Labs CBC & Chem 7: 06/27/18 21:35 06/27/18 21:35 Labs: Laboratory Results - last 24 hr 06/27/18 06/27/18 06/27/18 21:35 21:35 21:35 WBC 7.5 RBC 4.51 Hgb 14.1 Hct 41.4 MCV 91.7 MCH 31.3 MCHC 34.1 RDW 14.5 Plt Count 161 MPV 8.1 Neut % (Auto) 70.0 Lymph % (Auto) 14.6 [place] % (Auto) 12.1 H Eos % (Auto) 2.6 Baso % (Auto) 0.7 Neut # (Auto) 5.3 Lymph # (Auto) 1.1 [place] # (Auto) 0.9 Eos # (Auto) 0.2 Baso # (Auto) 0.1 WBC Differential . Differential Comment Auto diff final PT 11.4 INR 1.1 APTT 27.1 Sodium 141 Potassium 3.7 Chloride 108 H Carbon Dioxide 22.8 Anion Gap 10 BUN 12 Creatinine 0.87 Estimated GFR 88 L Random Glucose 123 H Calcium 8.8 Total Bilirubin 1.1 H AST 74 H ALT 33 Alkaline Phosphatase 44 L Ammonia Troponin I Less than 0.02 L Total Protein 7.7 Albumin 3.9 Lipase 60 L TSH 0.974 Urine Color Urine Clarity Urine pH Ur Specific [place] Urine Protein Urine Glucose (UA) Urine Ketones Urine Occult Blood Urine Nitrate Urine Bilirubin Urine Urobilinogen Ur Leukocyte Esterase Urine RBC Urine WBC Hyaline Casts Urine Mucus Micro UA Comment Ur Microscopic Review Urine Culture Comments Salicylates Urine Opiates Screen Acetaminophen Less than 2.0 L Ur Barbiturates Screen Ur Amphetamines Screen U Benzodiazepines Scrn Urine Cocaine Screen U Cannabinoids Screen Serum Alcohol Less than 3 06/27/18 06/27/18 06/27/18 21:35 21:35 23:40 WBC RBC Hgb Hct MCV MCH MCHC RDW Plt Count MPV Neut % (Auto) Lymph % (Auto) [place] % (Auto) Eos % (Auto) Baso % (Auto) Neut # (Auto) Lymph # (Auto) [place] # (Auto) Eos # (Auto) Baso # (Auto) WBC Differential Differential Comment PT INR APTT Sodium Potassium Chloride Carbon Dioxide Anion Gap BUN Creatinine Estimated GFR Random Glucose Calcium Total Bilirubin AST ALT Alkaline Phosphatase Ammonia 28 Troponin I Total Protein Albumin Lipase TSH Urine Color Urine Clarity Urine pH Ur Specific [place] Urine Protein Urine Glucose (UA) Urine Ketones Urine Occult Blood Urine Nitrate Urine Bilirubin Urine Urobilinogen Ur Leukocyte Esterase Urine RBC Urine WBC Hyaline Casts Urine Mucus Micro UA Comment Ur Microscopic Review Urine Culture Comments Salicylates 4.7 Urine Opiates Screen Neg Acetaminophen Ur Barbiturates Screen Neg Ur Amphetamines Screen Neg U Benzodiazepines Scrn Neg Urine Cocaine Screen Neg U Cannabinoids Screen Neg Serum Alcohol 06/27/18 23:40 WBC RBC Hgb Hct MCV MCH MCHC RDW Plt Count MPV Neut % (Auto) Lymph % (Auto) [place] % (Auto) Eos % (Auto) Baso % (Auto) Neut # (Auto) Lymph # (Auto) [place] # (Auto) Eos # (Auto) Baso # (Auto) WBC Differential Differential Comment PT INR APTT Sodium Potassium Chloride Carbon Dioxide Anion Gap BUN Creatinine Estimated GFR Random Glucose Calcium Total Bilirubin AST ALT Alkaline Phosphatase Ammonia Troponin I Total Protein Albumin Lipase TSH Urine Color Yellow Urine Clarity Clear Urine pH 6.0 Ur Specific [place] 1.014 Urine Protein Negative Urine Glucose (UA) Negative Urine Ketones Trace H Urine Occult Blood Negative Urine Nitrate Negative Urine Bilirubin Negative Urine Urobilinogen 4 or greater Ur Leukocyte Esterase Negative Urine RBC 1 Urine WBC 1 Hyaline Casts 1 Urine Mucus Few H Micro UA Comment Culture not ind Ur Microscopic Review Not Reportable Urine Culture Comments Culture not ind Salicylates Urine Opiates Screen Acetaminophen Ur Barbiturates Screen Ur Amphetamines Screen U Benzodiazepines Scrn Urine Cocaine Screen U Cannabinoids Screen Serum Alcohol - Imaging Impressions Chest X-Ray 06/27/18 21:14 CONCLUSION: No acute findings. Mildly tortuous aorta. Head CT 06/27/18 21:14 CONCLUSION: 1. 5 mm lacunar infarct near the left anterior limb internal capsule, new finding from 2010. 2. Otherwise negative noncontrast CT brain. . Review/Management - Diagnosis (1) Paranoid schizophrenia Code(s): F20.0 - Paranoid schizophrenia Status: Acute Current Visit: Yes (2) Lacunar stroke Code(s): I63.81 - Other cerebral infarction due to occlusion or stenosis of small artery Status: Acute Current Visit: Yes - Review/Management Plan: Possible new stroke resulting in his current symptoms; CT brain finding may also be chronic in nature Recommendation MRI brain. If negative consider psychiatric evaluation If MRI positive continue stroke workup PT evaluation
--- NOTE | 2018-06-28 09:55 | US ---
EXAM DATE: 06/28/2018 12:00 AM EDT AGE/SEX: 67 years / Male INDICATIONS: Cerebrovascular accident. CLINICAL DATA: This is the patient's initial encounter. Patient reports that signs and symptoms have been present for 1 day and indicates a pain score of 0/10. MEDICAL/SURGICAL HISTORY: Chronic obstructive pulmonary disease. Gastroesophageal reflux disea se. Hyperlipidemia. Schizophrenia. Tonsillectomy. COMPARISON: No prior exams available for comparison. VELOCITY PARAMETERS: ICA/CCA Ratio: Right 1.4 , Left 1.3 ICA: Right 109 cm/sec, Left 88 cm/sec CCA: Right 76 cm/sec, Left 68 cm/sec ECA: Right 83 cm/sec, Left 67 cm/sec Vertebral: Right 51 cm/sec antegrade, Left 55 cm/sec antegrade FINDINGS: Right Carotid: No significant plaque is visualized.The waveforms are within normal limits. Left Carotid: Mild arteriosclerotic plaque is visualized. The waveforms are within normal limits. Other: None. CONCLUSION: Mild plaque with no evidence of stenosis. Electronically signed by: Ac Duron MD 06/28/2018 9:54 AM EDT
--- NOTE | 2018-06-28 10:45 | OTSOAPIP ---
TIME SESSION COMPLETED: 1030 TREATMENT TIME: 0 MINS. CHART REVIEWED. PATIENT ENROUTE TO MRI. WILL REATTEMPT SCHEDULE PERMITS. Therapist: hCantal Proctor Signature on file
--- NOTE | 2018-06-28 11:29 | MR ---
EXAM DATE: 06/28/2018 9:28 AM EDT AGE/SEX: 67 years / Male INDICATIONS: CVA. A shunt has altered mental status and difficulty sleeping. CLINICAL DATA: This is the patient's initial encounter. Patient reports that signs and symptoms have been present for 2 days and indicates a pain score of 0/10. MEDICAL/SURGICAL HISTORY: None. Tonsillectomy. COMPARISON: [facility], CT HEAD W/O CONTRAST, 06/27/2018. . TECHNIQUE: Multiplanar, multisequence examination of the brain was performed without contrast. FINDINGS: Cerebrum: The ventricles are normal for age. No evidence of midline shift, mass lesion, hemorrhage or acute infarction. As a small old lacunar infarct in the left basal ganglia. No extraaxial fluid c ollections are seen. The pituitary gland and suprasellar cistern are normal in configuration. White Matter: No significant signal abnormalities are seen in the white matter. Posterior Fossa: The cerebellum and brainstem are intact. The 4th ventricle is midline. The cerebel lopontine angle is unremarkable. The cerebellar tonsils are normal in position. Diffusion Imaging: No focal areas of restricted diffusion are seen. No evidence of acute infarction . Extracranial: The visualized portions of the orbits and paranasal sinuses are unremarkable. CONCLUSION: 1. No acute hemorrhage, mass or acute infarction. 2. Small lacunar infarct in the left basal ganglia with no restricted diffusion. Electronically signed by: Ac Duron MD 06/28/2018 11:27 AM EDT
--- NOTE | 2018-06-28 11:30 | MR ---
EXAM DATE: 06/28/2018 9:28 AM EDT AGE/SEX: 67 years / Male INDICATIONS: CVA. CLINICAL DATA: This is the patient's initial encounter. Patient reports that signs and symptoms have been present for 2 days and indicates a pain score of 0/10. MEDICAL/SURGICAL HISTORY: None. Tonsillectomy. COMPARISON: No prior exams available for comparison. TECHNIQUE: 3D [id number] MRA was performed. Source images, multiplanar STS MIP, and 3D volum e MIP reconstructions were reviewed. FINDINGS: There is excellent visualization of the major intracranial arteries out to the second-order branch ve ssels. There is no evidence for aneurysm, vessel truncation or stenosis, and no evidence for vascula r malformation. CONCLUSION: 1. Unremarkable MRA of the brain. Electronically signed by: José Miguel Bailey MD 06/28/2018 11:28 AM EDT
[2018-06-28] MEDS: Tolterodine Tartrate LA 4 MG Capsule PO SCH (11:46)
[2018-06-28] MEDS: Pantoprazole Sodium 20 MG DR Tablet PO SCH (11:47)
[2018-06-28] MEDS: Budesonide-Formoterol 160/4.5 MCG 6 GM Inhaler INH SCH ×2 (11:47→21:07)
--- NOTE | 2018-06-28 18:15 | ECHRPT ---
Indication: cva CONCLUSIONS Normal left ventricular size. Wall thickness is normal. The left ventricular systolic function is normal with an estimated ejection fraction in the range of 55-60%. Trace mitral valve regurgitation. Mild thickening of the aortic valve leaflets. There is mild tricuspid valve regurgitation. The estimated pulmonary arterial pressure is 33 mmHg. BP: / HR: Rhythm: MEASUREMENTS (Male / Female) Normal Values Technical Quality: 2D ECHO LV Diastolic Diameter PLAX 5.2 cm 4.2 - 5.9 / 3.9 - 5.3 cm LV Systolic Diameter PLAX 3.4 cm IVS Diastolic Thickness 0.8 cm 0.6 - 1.0 / 0.6 - 0.9 cm LVPW Diastolic Thickness 0.8 cm 0.6 - 1.0 / 0.6 - 0.9 cm LV Relative Wall Thickness 0.3 RV Internal Dim ED PLAX 2.7 cm LVOT Diameter 2.1 cm Aortic Root Diameter 3.1 cm LA Systolic Diameter LX 2.9 cm 3.0 - 4.0 / 2.7 - 3.8 cm LV Ejection Fraction MOD 4C 60.5 % LV Ejection Fraction 4C AL 60.8 % M-MODE Aortic Root Diameter MM 3.5 cm LA Systolic Diameter MM 2.6 cm LA Ao Ratio MM 0.7 AV Cusp Separation MM 2.3 cm DOPPLER Mitral E Point Velocity 80.5 cm/s Mitral A Point Velocity 76.5 cm/s Mitral E to A Ratio 1.1 LV E' Lateral Velocity 6.2 cm/s Mitral E to LV E' Lateral Ratio 12.9 LV E' Septal Velocity 9.2 cm/s Mitral E to LV E' Septal Ratio 8.8 TR Peak Velocity 240.0 cm/s TR Peak Gradient 23.0 mmHg Right Atrial Pressure 10.0 mmHg Pulmonary Artery Systolic Pressu 33.0 mmHg Right Ventricular Systolic Press 33.0 mmHg PV Peak Velocity 71.3 cm/s PV Peak Gradient 2.0 mmHg FINDINGS LEFT VENTRICLE Normal left ventricular size. Wall thickness is normal. The left ventricular systolic function is normal with an estimated ejection fraction in the range of 55-60%. RIGHT VENTRICLE Normal right ventricular size and systolic function. LEFT ATRIUM The left atrial size is normal. RIGHT ATRIUM The right atrial size is normal. ATRIAL SEPTUM Normal atrial septal thickness without atrial level shunting by limited color doppler interrogation. AORTA The aortic root and proximal ascending aorta are normal in size on limited imaging. MITRAL VALVE Trace mitral valve regurgitation. AORTIC VALVE Mild thickening of the aortic valve leaflets/ aortic valve sclerosis. TRICUSPID VALVE Jailene is mild tricuspid valve regurgitation. The estimated pulmonary arterial pressure is 33 mmHg. PULMONARY VALVE No pulmonary valve regurgitation or stenosis. VESSELS The inferior vena cava is normal in size. PERICARDIUM No pericardial effusion. Wilmer Arriaga MD (Electronically Signed) Final Date:28 June 2018 18:15
[2018-06-29] MEDS: Heparin - SQ 10,000 UNITS/ML Vial SQ SCH ×2 (02:58→12:41)
[2018-06-29] MEDS: Insulin NovoLOG Aspart Correctional Sugar Inj SQ SCH ×3 (03:06→12:38)
[2018-06-29 04:33] VITALS: RESP 16
[2018-06-29] MEDS: Sod Chloride 0.9% Inj 1,000 ML IV.CONT SCH (06:03)
[2018-06-29 07:34] LABS: Chol/HDL Ratio 2.43 Ratio; HDL Cholesterol 52.2 mg/dL (40.0-60.0)
--- NOTE | 2018-06-29 08:05 | P.PNNEU ---
Subjective Subjective Comments: No cp, no dyspnea, no quach, no focal weakness, no vision loss. slept well feels. well. states his facility sent him here because he "didn't look good" Active Medications: Active Medications Aspirin (Ecotrin) 81 mg PO DAILY ON LICENSE OF [facility] Last Admin: 06/28/18 11:46 Dose: Not Given Benztropine Mesylate (Cogentin) 2 mg PO HS ON LICENSE OF [facility] Last Admin: 06/28/18 20:55 Dose: 2 mg Budesonide/Formoterol Fumarate (Symbicort 160/4.5 Mcg Inh) 2 puff INH BID ON LICENSE OF [facility] Last Admin: 06/28/18 21:07 Dose: Not Given Dextrose (D50w Vial) 50 ml IV.PUSH UNSCH PRN PRN Reason: PER HYPOGLYCEMIA PROTOCOL Diphenhydramine HCl (Benadryl) 50 mg PO HS PRN PRN Reason: Sleep Glucagon (Glucagon Inj) 1 mg OTHER PRN PRN PRN Reason: for Hypoglycemia Protocol Haloperidol (Haldol) 10 mg PO HS ON LICENSE OF [facility] Last Admin: 06/28/18 20:55 Dose: 10 mg Heparin Sodium (Porcine) (Heparin Inj) 5,000 units SQ Q12H ON LICENSE OF [facility] Last Admin: 06/29/18 02:58 Dose: 5,000 units Sodium Chloride (Ns Inj) 1,000 mls @ 70 mls/hr IV.CONT .[id number] ON LICENSE OF [facility] Last Admin: 06/29/18 06:03 Dose: 70 mls/hr Insulin Aspart (Novolog Insulin Correctional Sugar Inj) 0 unit SQ ACHS AND 3AM JUANJO; Protocol Last Admin: 06/29/18 03:06 Dose: Not Given Pantoprazole Sodium (Protonix) 20 mg PO DAILY ON LICENSE OF [facility] Last Admin: 06/28/18 11:47 Dose: Not Given Pravastatin Sodium (Pravachol) 40 mg PO DAILY ON LICENSE OF [facility] Last Admin: 06/28/18 11:46 Dose: Not Given Sodium Chloride (Ns Flush) 2 ml IV.FLUSH BID ON LICENSE OF [facility] Last Admin: 06/28/18 21:07 Dose: Not Given Sodium Chloride (Ns Flush) 2 ml IV.FLUSH PRN PRN PRN Reason: FLUSH AFTER USING IV ACCESS Tolterodine Tartrate (Detrol La) 4 mg PO DAILY ON LICENSE OF [facility] Last Admin: 06/28/18 11:46 Dose: Not Given Trazodone HCl (Desyrel) 200 mg PO HS [facility] Last Admin: 06/28/18 20:56 Dose: 200 mg Allergies/Adverse Reactions: Allergies Allergy/AdvReac Type Severity Reaction Status Date / Time morphine Allergy Severe Unverified 05/05/17 01:18 penicillin G Allergy Mild NAUSEA Unverified 05/05/17 01:18 MORPHINE & DERIV. Allergy Unknown Uncoded 05/29/03 12:16 NONE Allergy Unknown Uncoded 05/29/03 12:16 Review of Systems All other systems reviewed negative except as stated in HPI Physical Exam Vital signs: Vital Signs 06/28/18 20:18 06/29/18 00:07 06/29/18 02:00 Temperature 98.4 F 97.9 F Pulse Rate 54 L 51 L 55 L Respiratory Rate 18 17 Blood Pressure 155/79 H 144/78 H Pulse Oximetry 96 96 06/29/18 04:00 06/29/18 04:32 Temperature 97.8 F Pulse Rate 46 L 52 L Respiratory Rate 16 Blood Pressure 162/72 H Pulse Oximetry 97 Intake & Output 06/28/18 06/29/18 06/29/18 18:59 06:59 18:59 Intake Total 1000 / 1000 1480 / 1480 Balance 1000 / 1000 1480 / 1480 Weight 85.7 kg Intake: IV 1000 / 1000 1000 / 1000 NS Inj 1,000 ML @ 70 mls/hr IV. 1000 / 1000 1000 / 1000 CONT .[id number] ON LICENSE OF [facility] Rx#:[id number] Oral 480 / 480 Other: # Voids 4 Narrative: GENERAL: in NAD, SKIN: Warm and dry. HEAD: Atraumatic. Normocephalic. EYES: Pupils equal and round. No scleral icterus. ENT: No nasal bleeding or discharge. Mucous membranes pink and moist. NECK: Trachea midline. No JVD. CARDIOVASCULAR: Regular rate and rhythm. RESPIRATORY: No accessory muscle use. GASTROINTESTINAL: Abdomen soft, non-tender, nondistended. MUSCULOSKELETAL: Extremities without clubbing, cyanosis, or edema. No obvious deformities. NEUROLOGICAL: Awake and alert. Oriented 3, president Trump, no aphasia, slightly dysarthric speech states he does not have his dentures in,, No facial asymmetry, OU 3-2mm, eomi, VFF, No drift, Motor grossly within normal limits. Five out of 5 muscle strength in the arms and legs. Tone normal in all 4 limbs, Sensory normal in all 4 extremities to pin, msr 1-2+ sym, no clonus, planterflexor, PSYCHIATRIC: Good eye contact, monotone speech, flat affect, calm, pleasant - Constitutional no acute distress - Routine HEENT Exam Head: Present: normocephalic Objective Laboratory Results - last 24 hr 06/28/18 06/29/18 06/29/18 21:05 03:03 05:49 POC Glucose 125 H 81 Triglycerides 63 Cholesterol 127 LDL Cholesterol, Calc 62 HDL Cholesterol 52.2 Cholesterol/HDL Ratio 2.43 Review/Management - Diagnosis (1) Paranoid schizophrenia Code(s): F20.0 - Paranoid schizophrenia Status: Acute Current Visit: Yes (2) Lacunar stroke Code(s): I63.81 - Other cerebral infarction due to occlusion or stenosis of small artery Status: Acute Current Visit: Yes - Review/Management Plan: No acute stroke Neuro stable Recommendation MRI brain negative. neuro/mental status stable d/c back to his facility today
[2018-06-29] MEDS: Pantoprazole Sodium 20 MG DR Tablet PO SCH (09:40)
--- NOTE | 2018-06-29 09:58 | P.DS ---
Date of admission: 06/28/18 00:40 Primary care physician: UNKNOWN Brief History from admission: 67-year-old male with a past medical history significant for paranoid schizophrenia, COPD, GERD, and hyperlipidemia presents to the emergency department from his [facility] for the evaluation of altered mental status. Per emergency department documentation the patient is usually quiet and keeps to himself at the facility however today the staff noticed that he was fidgety, giggling to himself and down in the office more than usual. The patient cannot tell me why he is here and does not have any complaints. He denies using any alcohol or drugs. He states he has been compliant with his medications. No facial droop or slurred speech. No lateralizing signs/symptoms. No chest pain or shortness of breath. No fevers or chills. No abdominal pain. No nausea/ vomiting/diarrhea. Head CT significant for lacunar infarct of unknown age. DS: Summary Hospital Course: Mr. Haynes is a 67 year old male. He has schizophrenia baseline lives in a [facility]. He had a change in mental status which prompted him to be sent to the ER. Concerns for stroke are present. Stroke workup is negative. Patient has returned to baseline. Patient reports that he does not sleep for 2 days because his schedule was "turnaround", now that he has sleep he feels that this was the problem. At this point is medically stable and cleared for return to his [facility]. Discharge home today. Resume all prior outpatient medications and treatments. - Time Spent with Patient Total time spent providing and/or coordinating discharge services: Less than 30 minutes Exam Vital signs: Vital Signs 06/28/18 20:18 06/29/18 00:07 06/29/18 02:00 Temperature 98.4 F 97.9 F Pulse Rate 54 L 51 L 55 L Respiratory Rate 18 17 Blood Pressure 155/79 H 144/78 H Pulse Oximetry 96 96 06/29/18 04:00 06/29/18 04:32 06/29/18 08:00 Temperature 97.8 F 97.5 F L Pulse Rate 46 L 52 L 48 L Respiratory Rate 16 16 Blood Pressure 162/72 H 132/71 Pulse Oximetry 97 97 Intake & Output 06/28/18 06/29/18 06/29/18 18:59 06:59 18:59 Intake Total 1000 / 1000 1480 / 1480 Balance 1000 / 999 1480 / 1480 Weight 85.7 kg Intake: IV 1000 / 1000 1000 / 1000 NS Inj 1,000 ML @ 70 mls/hr IV. 1000 / 1000 1000 / 1000 CONT .[id number] [facility] Rx#:[id number] Oral 480 / 480 Other: # Voids 4 Results Procedures completed during hospitalization: None Labs on day of discharge: Labs from last 24 hours 06/29/18 06/29/18 06/29/18 08:26 06:49 05:49 POC Glucose 97 Hemoglobin A1c Pending Triglycerides 63 Cholesterol 127 LDL Cholesterol, Calc 62 HDL Cholesterol 52.2 Cholesterol/HDL Ratio 2.43 06/29/18 06/28/18 03:03 21:05 POC Glucose 81 125 H Hemoglobin A1c Triglycerides Cholesterol LDL Cholesterol, Calc HDL Cholesterol Cholesterol/HDL Ratio - Impressions ITS Impressions Chest X-Ray 06/27/18 21:14 CONCLUSION: No acute findings. Mildly tortuous aorta. Head CT 06/27/18 21:14 CONCLUSION: 1. 5 mm lacunar infarct near the left anterior limb internal capsule, new finding from 2010. 2. Otherwise negative noncontrast CT brain. . Carotid Doppler Study 06/28/18 00:00 CONCLUSION: Mild plaque with no evidence of stenosis. Head MRI 06/28/18 00:41 CONCLUSION: 1. No acute hemorrhage, mass or acute infarction. 2. Small lacunar infarct in the left basal ganglia with no restricted diffusion. Head MRA 06/28/18 00:41 CONCLUSION: 1. Unremarkable MRA of the brain. Discharge Plan - Discharge Disposition Patient Disposition: 01 Discharge Home - Discharge Condition Condition: Stable - Discharge Order Discharge Orders: Discharge Order (Routine); Ordered 06/29/18 Ordered By: Bob Caballero - Discharge Details Anticipated Discharge Date: 06/29/18 - Physicians Team Primary Care Provider: UNKNOWN, Attending Provider: Bob Caballero Other Providers: Michael Tobin MD ; Marichuy Lopez MD
[2018-06-29] MEDS: Tolterodine Tartrate LA 4 MG Capsule PO SCH (11:17)
[2018-06-29] MEDS: Budesonide-Formoterol 160/4.5 MCG 6 GM Inhaler INH SCH (11:17)
[2018-06-29 12:24] VITALS: BP 140/68; PULSE 50; TEMP 98.2; O2SAT 98
[2018-06-29 16:01] LABS: Hemoglobin A1c 5.1 % (4.3-6.0)
== END 2018-06-29 13:05 ==
LOC: NEDA 20:59 → NEPC 20:59 → NEDH 06-28 07:04 → H7ONC 06-28 11:10
PROVIDERS: ADMIT Hospitalist; ATTEND Hospitalist